=== PATIENT | female | born 1955 | race Caucasian/White ===

== ENCOUNTER 2022-12-28 10:12 | Outpatient (RCR) | payer MEDICARE | END 2022-12-29 | disposition home or self-care (01) | LOC: CR 10:12 | PROVIDERS: ATTEND Internal Medicine Hematology & Oncology | DX: Z29.8 Encounter for other specified prophylactic measures (principal); Z95.2 Presence of prosthetic heart valve | CPT/HCPCS: 93798 ==

== ENCOUNTER 2023-01-27 10:00 | Outpatient (RCR) | payer MEDICARE | END 2023-01-28 | disposition home or self-care (01) | LOC: CR 10:00 | PROVIDERS: ATTEND Internal Medicine Hematology & Oncology | DX: Z29.8 Encounter for other specified prophylactic measures (principal); Z95.2 Presence of prosthetic heart valve | CPT/HCPCS: 93798 ==

== ENCOUNTER 2023-01-30 08:38 | Outpatient (RCR) | payer MEDICARE | END 2023-02-28 | disposition home or self-care (01) | LOC: CR 08:38 | PROVIDERS: ATTEND Internal Medicine Hematology & Oncology | DX: Z29.89 Encounter for other specified prophylactic measures (principal); Z95.2 Presence of prosthetic heart valve | CPT/HCPCS: 93798 ==